=== PATIENT | male | born 2000 | race Two or more races ===

== ENCOUNTER 2021-06-24 12:39 | Emergency (ER) | payer SELFPAY ==
[~2021-06-24] VITALS: Ht 182.9 cm; Wt 77.1 kg
[2021-06-24 13:38] VITALS: BP 143/85
[2021-06-24] MEDS ORDERED: CEPH500T PO (13:58)
[2021-06-24] MEDS ORDERED: IBUP800T27 PO (13:58)
== END 2021-06-24 14:02 | disposition home or self-care (01) ==
LOC: ER 12:39
DX: S62.356A Nondisplaced fracture of shaft of fifth metacarpal bone, right hand, initial encounter for closed fracture (principal); F12.10 Cannabis abuse, uncomplicated; W22.8XXA Striking against or struck by other objects, initial encounter; Y93.89 Activity, other specified; Y92.89 Other specified places as the place of occurrence of the external cause; Y99.8 Other external cause status
CPT/HCPCS: 29125; 73130

== ENCOUNTER 2021-10-28 16:45 | Inpatient (IN) | payer MEDICAID ==
[~2021-10-28] VITALS: Ht 182.9 cm; Wt 77.1 kg
[~2021-10-28 16:45] MED LIST: CEPH500T PO; IBUP800T27 PO
[2021-10-28 18:44] LABS: Basophils # (auto) 0 10 ^3/uL (0-0.2); Basophils % (auto) 0.4 % (0.0-2.0); Eosinophils # (auto) 0 10 ^3/uL (0-0.8); Lymphocytes # (auto) 2.4 10 ^3/uL (0.4-5.4); Red Cell Distribution Width 12.6 % (11.8-14.3); White Blood Cell 12.1 10^3/uL (4.4-10.8)
[2021-10-28 18:45] LABS: Eosinophils % (auto) 0.2 % (0.0-7.0); Hematocrit 51.9 % (41.0-53.0); Hemoglobin 18.2 g/dL (13.5-17.5); Lymphocytes % (auto) 20.1 % (10.0-50.0); Mean Corpuscular Hemoglobin 30.6 pg (28.0-32.0); Mean Corpuscular Volume 87.2 fL (80.0-100.0); Monocytes # (auto) 0.9 10 ^3/uL (0-1.3); Neutrophils # (auto) 8.8 10 ^3/uL (1.6-8.6); Neutrophils % (auto) 72.3 % (37.0-80.0); Nucleated Red Blood Cells % 0.1 %; Red Blood Cells 5.95 10^6/uL (4.5-5.90)
[2021-10-28 18:56] LABS: Albumin 4.9 g/dL (3.4-5.0); BUN/Creatinine Ratio 11.8; Calcium 10.3 mg/dL (8.5-10.1); Potassium 3.8 mmol/L (3.5-5.1)
[2021-10-28 18:59] LABS: Total Protein 10.2 g/dL (6.4-8.2)
[2021-10-28] MEDS ORDERED: IOHEXOL 300 MG/ML 100ML BOTTLE IJ ONE (19:21)
[2021-10-28] MEDS ORDERED: SODIUM CHLORIDE 0.9% 1,000 ML IV ONE (21:45)
[2021-10-28 22:06] LABS: Urine Bacteria NONE SEEN /hpf (None Seen); Urine Blood Negative /uL (Negative); Urine Mucus FEW (None Seen); Urine Specific Gravity 1.035 (1.001-1.035); Urine WBC 34 /hpf (0 - 3)
[2021-10-28] MEDS ORDERED: ACETAMINOPHEN 325 MG TAB PO PRN (23:15)
[2021-10-28] MEDS ORDERED: SODIUM CHLORIDE 0.9% 500 ML IV ONE (23:15)
[2021-10-28] MEDS ORDERED: PANTOPRAZOLE 40 MG TAB PO ONE (23:15)
[2021-10-28] MEDS ORDERED: HYDROcodone-ACET 5/325MG TAB PO PRN (23:15)
[2021-10-28] MEDS ORDERED: ONDANSETRON HCL 4 MG/2 ML VIAL IV PRN (23:15)
[2021-10-29] MEDS: SODIUM CHLORIDE 0.9% 1,000 ML IV SCH ×2 (00:01→05:41)
[2021-10-29 00:52] LABS: Hematocrit 45.8 % (41.0-53.0); Hemoglobin 15.8 g/dL (13.5-17.5)
[2021-10-29] MEDS: TEMAZEPAM 15 MG CAP PO PRN (02:22)
[2021-10-29 05:54] LABS: Basophils # (auto) 0 10 ^3/uL (0-0.2); Basophils % (auto) 0.6 % (0.0-2.0); Eosinophils # (auto) 0.1 10 ^3/uL (0-0.8); Eosinophils % (auto) 1.5 % (0.0-7.0); Hematocrit 44.4 % (41.0-53.0); Hemoglobin 15.5 g/dL (13.5-17.5); Lymphocytes # (auto) 2.2 10 ^3/uL (0.4-5.4); Lymphocytes % (auto) 30.4 % (10.0-50.0); Mean Corpuscular Hemoglobin 30.4 pg (28.0-32.0); Mean Corpuscular Hgb Conc. 34.8 g/dL (32.0-36.0); Mean Corpuscular Volume 87.5 fL (80.0-100.0); Monocytes # (auto) 0.7 10 ^3/uL (0-1.3); Monocytes % (auto) 9.5 % (0.0-12.0); Neutrophils # (auto) 4.3 10 ^3/uL (1.6-8.6); Nucleated Red Blood Cells % 0.2 %; Red Blood Cells 5.08 10^6/uL (4.5-5.90); Red Cell Distribution Width 12.6 % (11.8-14.3); White Blood Cell 7.4 10^3/uL (4.4-10.8)
[2021-10-29 06:14] LABS: Potassium 3.7 mmol/L (3.5-5.1)
[2021-10-29 06:25] LABS: Albumin 3.8 g/dL (3.4-5.0); Bilirubin, Total 1.2 mg/dL (0.2-1.0); Total Protein 7.8 g/dL (6.4-8.2)
[2021-10-29 08:00] VITALS: BP 130/80
[2021-10-29 09:00] VITALS: BP 130/80
[2021-10-29] MEDS ORDERED: PANTOPRAZOLE 40 MG TAB PO SCH (10:00)
[2021-10-29] MEDS ORDERED: LORazepam 2MG/ML-1ML VIAL IV ONE (10:45)
[2021-10-29] MEDS ORDERED: levoFLOXacin 500MG 100 ML IV ONE (12:15)
[2021-10-29 12:27] LABS: Amphetamine Screen, Urine NEGATIVE (NEGATIVE); Barbiturate Scree,Urine NEGATIVE (NEGATIVE); Benzodiazephine Screen, Urine NEGATIVE (NEGATIVE); Cannabinoid Screen, Urine POSITIVE (NEGATIVE); Cocaine Screen, Urine NEGATIVE (NEGATIVE); Opiate Scree,Urine NEGATIVE (NEGATIVE); Phencyclidine Screen, Urine NEGATIVE (NEGATIVE)
[2021-10-29] MEDS: LACTATED RINGER'S 1,000 ML IV SCH ×2 (12:32→20:16)
[2021-10-29 13:00] VITALS: BP 138/87
[2021-10-29] MEDS ORDERED: GADOTERATE MEG 10 MMOL/20ml INJ (0.5MMOL/ml) IV ONE (14:40)
[2021-10-29 16:48] VITALS: BP 145/86
[2021-10-29] MEDS: SUCRALFATE 1 GM/10 ML ORAL SUSP PO SCH ×2 (17:25→21:00)
[2021-10-29] MEDS: LORazepam 0.5 MG TAB PO PRN (21:02)
[2021-10-29] MEDS: PANTOPRAZOLE 40 MG TAB PO SCH (21:02)
[2021-10-29 22:00] VITALS: BP 152/83
[2021-10-30] VITALS (7 sets, daily range): BP systolic 104–140; BP diastolic 53–100
[2021-10-30] MEDS: LACTATED RINGER'S 1,000 ML IV SCH ×2 (02:43→08:00)
[2021-10-30 05:54] LABS: Basophils # (auto) 0 10 ^3/uL (0-0.2); Basophils % (auto) 0.6 % (0.0-2.0); Eosinophils # (auto) 0.1 10 ^3/uL (0-0.8); Eosinophils % (auto) 2.9 % (0.0-7.0); Hematocrit 44.4 % (41.0-53.0); Hemoglobin 15.5 g/dL (13.5-17.5); Lymphocytes # (auto) 2.1 10 ^3/uL (0.4-5.4); Lymphocytes % (auto) 41.3 % (10.0-50.0); Mean Corpuscular Hemoglobin 30.5 pg (28.0-32.0); Mean Corpuscular Volume 87.2 fL (80.0-100.0); Monocytes # (auto) 0.4 10 ^3/uL (0-1.3); Monocytes % (auto) 8.6 % (0.0-12.0); Neutrophils # (auto) 2.3 10 ^3/uL (1.6-8.6); Neutrophils % (auto) 46.6 % (37.0-80.0); Nucleated Red Blood Cells % 0.1 %; Red Blood Cells 5.09 10^6/uL (4.5-5.90); Red Cell Distribution Width 12.3 % (11.8-14.3)
[2021-10-30 06:07] LABS: INR 1.21 (0.9-1.15)
[2021-10-30] MEDS: SUCRALFATE 1 GM/10 ML ORAL SUSP PO SCH ×4 (06:20→21:48)
[2021-10-30] MEDS: PANTOPRAZOLE 40 MG TAB PO SCH ×2 (09:33→21:48)
[2021-10-30] MEDS: levoFLOXacin 500MG 100 ML IV SCH (09:33)
[2021-10-30] MEDS: LORazepam 0.5 MG TAB PO PRN (16:20)
[2021-10-30] MEDS: TEMAZEPAM 15 MG CAP PO PRN (21:48)
[2021-10-31 04:50] VITALS: BP 106/60
[2021-10-31] MEDS: SUCRALFATE 1 GM/10 ML ORAL SUSP PO SCH ×4 (07:48→22:36)
[2021-10-31 08:43] VITALS: BP 141/90
[2021-10-31] MEDS: levoFLOXacin 500MG 100 ML IV SCH (09:58)
[2021-10-31] MEDS: PANTOPRAZOLE 40 MG TAB PO SCH ×2 (10:00→22:37)
[2021-10-31] MEDS ORDERED: LIDOCAINE VISCOUS 2% 15ML UD ONE (12:17)
[2021-10-31 12:39] VITALS: BP 146/78
[2021-10-31] MEDS ORDERED: MIDAZOLAM HCL 2MG/2ML 2ml VIAL (1mg/ml) ONE (13:12)
[2021-10-31] MEDS ORDERED: fentaNYL CITRATE 100 MCG/2 ML VL ONE (13:12)
[2021-10-31] MEDS ORDERED: DexAMETHasone SOD PHOS 10MG/1ML VIAL INJ ONE (13:13)
[2021-10-31] MEDS ORDERED: PROPOFOL 10 MG/ML 20 ML IV ONE (13:14)
[2021-10-31] MEDS ORDERED: ONDANSETRON HCL 4 MG/2 ML VIAL IV PRN (14:00)
[2021-10-31] MEDS ORDERED: HYDROmorphone HCL 2 MG/ML VL IV PRN (14:00)
[2021-10-31] MEDS ORDERED: MORPHINE SULFATE 4 MG/ML SYR/VIAL IV PRN (14:00)
[2021-10-31] MEDS ORDERED: ePHEDrine SULFATE 50 MG/ML AMP IV PRN (14:00)
[2021-10-31] MEDS ORDERED: LABETALOL HCL 5 MG/ML 4ML SYRINGE IV PRN (14:00)
[2021-10-31] MEDS ORDERED: MIDAZOLAM HCL 2MG/2ML 2ml VIAL (1mg/ml) IV PRN (14:00)
[2021-10-31 16:48] VITALS: BP_SYST 141; BP_SYST 145; BP_DIAS 82; BP_DIAS 93
[2021-10-31 22:00] VITALS: BP 147/89
[2021-10-31] MEDS: TEMAZEPAM 15 MG CAP PO PRN (22:37)
[2021-11-01 05:00] VITALS: BP 146/83
[2021-11-01] MEDS: SUCRALFATE 1 GM/10 ML ORAL SUSP PO SCH (07:39)
[2021-11-01 08:30] VITALS: BP 148/85
[2021-11-01 09:00] VITALS: BP 148/85
[2021-11-01] MEDS ORDERED: PANT40T PO (09:48)
[2021-11-01] MEDS: PANTOPRAZOLE 40 MG TAB PO SCH (09:48)
[2021-11-01] MEDS: levoFLOXacin 500MG 100 ML IV SCH (09:48)
[2021-11-01] MEDS ORDERED: SUCR1TAB22 PO (09:48)
[2021-11-01 11:09] VITALS: BP 148/85
== END 2021-11-01 12:15 | disposition home or self-care (01) | DRG 241 ==
LOC: ER 16:45 → CENTRAL 23:02
PROVIDERS: ADMIT Nurse Practitioner; ATTEND Family Medicine
PROC: 0DJ08ZZ Inspection of Upper Intestinal Tract, Via Natural or Artificial Opening Endoscopic (ICD-10-PCS; principal; 2021-10-31 13:18)
DX: K29.70 Gastritis, unspecified, without bleeding (principal); N17.0 Acute kidney failure with tubular necrosis; K29.80 Duodenitis without bleeding; N39.0 Urinary tract infection, site not specified; K92.0 Hematemesis; K76.0 Fatty (change of) liver, not elsewhere classified; E86.0 Dehydration; F12.90 Cannabis use, unspecified, uncomplicated; Z88.0 Allergy status to penicillin; Z20.822 Contact with and (suspected) exposure to COVID-19
CPT/HCPCS: 36415; 74176; 74183; 80053; 80307; 81001; 82270; 83690; 85014; 85018; 85025; 85610; 96360; 96361; G0378; J1100; J1956; J2250; J2405; J2704